=== PATIENT | female | born 1970 | race African-American/Black ===

== ENCOUNTER 2018-02-27 17:29 | Emergency (ER) | payer OTHER ==
[2018-02-27] MEDS: LORAZEPAM 1 MG TAB PO (18:13)
[2018-02-27] MEDS: KETOROLAC 60 MG INJ IM (18:16)
== END 2018-02-27 19:38 | disposition home or self-care (01) ==
LOC: FTE 17:29
DX: S16.1XXA Strain of muscle, fascia and tendon at neck level, initial encounter (principal); X58.XXXA Exposure to other specified factors, initial encounter; Y92.9 Unspecified place or not applicable
CPT/HCPCS: 81025; 96372; 99284-25

== ENCOUNTER 2018-11-04 11:45 | Emergency (ER) | payer OTHER ==
[2018-11-04] MEDS: ACETAMINOPHEN 500 MG TAB PO (13:50)
== END 2018-11-04 15:14 | disposition home or self-care (01) ==
LOC: FTE 15:14
DX: M79.604 Pain in right leg (principal); M79.605 Pain in left leg; E11.9 Type 2 diabetes mellitus without complications; I10 Essential (primary) hypertension
CPT/HCPCS: 93970; 99284-25